=== PATIENT | male | born 1970 ===

== ENCOUNTER 2018-10-15 13:26 | Inpatient (IN) | payer MEDICAID ==
[2018-10-15] MEDS ORDERED: Piperacillin/Tazobact 4.5 GM in Sodium Chloride 0.9% 100 ML IVPB STA (14:39)
[2018-10-15] MEDS ORDERED: Vancomycin 1 g Inj ONE (14:50)
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
[2018-10-15 15:09] LABS: BASO # 0.1 K/uL (0.0-0.2); BASO % 0.7 % (0.0-2.0); EOS % 0.1 % (0.0-4.0); HEMOGLOBIN 12.9 g/dL (12.0-18.0); LYMPH # 0.6 K/uL (1.0-4.3); LYMPH % 4.7 % (20.0-40.0); MEAN CELL VOLUME 87.2 fl (80.0-94.0); MEAN CORPUSCULAR HEMOGLOBIN 27.7 pg (27.0-31.0); MEAN CORPUSCULAR HGB CONC 31.8 g/dL (33.0-37.0); MEAN PLATELET VOLUME 9.3 fl (7.2-11.7); MONO # 0.6 K/uL (0.0-0.8); MONO % 4.8 % (0.0-10.0); NEUT # 10.6 K/uL (1.8-7.0); NEUT % 89.7 % (50.0-75.0); PLATELET COUNT 340 K/uL (130-400); RBC 4.63 Mil/uL (4.40-5.90); WHITE BLOOD COUNT 11.8 K/uL (4.8-10.8)
[2018-10-15 15:16] LABS: ALBUMIN 4.1 g/dL (3.5-5.0); ALT/SGPT 24 U/L (21-72); AST/SGOT 20 U/L (17-59); BLOOD UREA NITROGEN 18 mg/dl (9-20); CALCIUM 9.3 mg/dL (8.4-10.2); GFR NON-AFRICAN AMERICAN > 60
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
[2018-10-15 16:01] LABS: EOSINOPHIL 1 % (0-7); LYMPHOCYTE 4 % (20-50); MONOCYTE 2 % (0-10); NEUTROPHIL 93 % (42-75); PLATELET ESTIMATE NORMAL (NORMAL); TOTAL CELLS COUNTED 100
[2018-10-15] MEDS ORDERED: Iohexol 300 100 ML IJ ONE (17:32)
[2018-10-15] MEDS ORDERED: Sodium Chloride 0.9% 50 ML IV ONE (17:32)
[2018-10-15] MEDS ORDERED: Lidocaine 1% Inj (20ml) ONE (18:46)
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
--- NOTE | 2018-10-15 19:33 | CP.PCM.PN ---
Subjective - Date & Time of Evaluation Date of Evaluation: 10/15/18 Time of Evaluation: 19:27 - Subjective Subjective: PROCEDURE NOTE FOR DR. CANNON PROCEDURE DATE: 10/15/18 PRE-OP DIAGNOSIS: Left medial forearm abscess POST-OP DIAGNOSIS: Same PROCEDURE: Incision and Drainage of abscess Performing Physician: Guy García D.O Consent was obtained. A timeout protocol was performed prior to initiating the procedure. The left medial forearm area was prepared and draped in the usual, sterile manner. The site was anesthetized with 7cc of 1% lidocaine without epinephrine. A linear incision along the local skin lines was made and approx 50cc of the purulent material expressed. The abscess was explored thoroughly with small clamp and 4*4 gauze and sequestered pockets were opened. Bleeding was minimal. Packin inch iodoform packing Dressing was 4*4 gauze and curlex Followup: The patient tolerated the procedure well without complications. Standard post-procedure care is explained. Objective - Vital Signs/Intake and Output Vital Signs (last 24 hours): Temp Pulse Resp BP Pulse Ox 98.1 F 56 L 20 91/57 L 100 10/15/18 18:56 10/15/18 18:56 10/15/18 18:56 10/15/18 18:56 10/15/18 18:56 - Medications Medications: Current Medications Acetaminophen (Tylenol 325mg Tab) 650 mg PO Q6 PRN PRN Reason: Fever >100.4 F Enoxaparin Sodium (Lovenox) 40 mg SC DAILY NOEL; Protocol Vancomycin HCl 1 gm/ Sodium (Chloride) 250 mls @ 166.667 mls/hr IVPB Q12 NOEL; Protocol Piperacillin Sod/Tazobactam (Sod 3.375 gm/ Sodium Chloride) 100 mls @ 100 mls/hr IVPB Q6 NOEL; Protocol Ibuprofen (Motrin Tab) 400 mg PO Q6H PRN PRN Reason: Pain, Mild (1-3) Pantoprazole Sodium (Protonix Ec Tab) 40 mg PO DAILY NOEL - Labs Labs: 10/15/18 14:10 10/15/18 14:10
[2018-10-15] MEDS ORDERED: Morphine 4 MG/ML VIAL IVP ONE (19:58)
[2018-10-15] MEDS: Piperacillin/Tazobact 3.375 GM in Sodium Chloride 0.9% 100 ML IVPB SCH (20:17)
[2018-10-16] MEDS: Piperacillin/Tazobact 3.375 GM in Sodium Chloride 0.9% 100 ML IVPB SCH ×4 (02:29→21:31)
[2018-10-16 07:37] LABS: BASO # 0.1 K/uL (0.0-0.2); BASO % 0.9 % (0.0-2.0); EOS # 0.1 K/uL (0.0-0.7); EOS % 1.6 % (0.0-4.0); HEMOGLOBIN 11.3 g/dL (12.0-18.0); LYMPH # 1.2 K/uL (1.0-4.3); LYMPH % 15.5 % (20.0-40.0); MEAN CORPUSCULAR HEMOGLOBIN 27.9 pg (27.0-31.0); MEAN CORPUSCULAR HGB CONC 32.4 g/dL (33.0-37.0); MONO # 0.7 K/uL (0.0-0.8); MONO % 9.8 % (0.0-10.0); NEUT # 5.4 K/uL (1.8-7.0); NEUT % 72.2 % (50.0-75.0); NRBC % 0.1 % (0.0-0.0); RBC 4.06 Mil/uL (4.40-5.90); RED CELL DISTRIBUTION WIDTH 13.4 % (11.5-14.5); WHITE BLOOD COUNT 7.4 K/uL (4.8-10.8)
--- NOTE | 2018-10-16 08:17 | CP.PCM.PN ---
<Guy García D - Last Filed: 10/16/18 08:15> Subjective - Date & Time of Evaluation Date of Evaluation: 10/16/18 Time of Evaluation: 08:15 - Subjective Subjective: SURGERY NOTE FOR DR. CANNON 48M seen and examined bedside. Patient states pain is much less, denies any fevers overnight, wound site is still draining and dressing was re-enforced last night. Objective - Vital Signs/Intake and Output Vital Signs (last 24 hours): Temp Pulse Resp BP Pulse Ox 98.4 F 55 L 18 105/61 98 10/16/18 00:45 10/16/18 00:45 10/16/18 00:45 10/16/18 00:45 10/16/18 00:45 - Medications Medications: Current Medications Acetaminophen (Tylenol 325mg Tab) 650 mg PO Q6 PRN PRN Reason: Fever >100.4 F Enoxaparin Sodium (Lovenox) 40 mg SC DAILY NOEL; Protocol Hydromorphone HCl (Dilaudid) 1 mg IVP Q4 PRN PRN Reason: Pain, severe (8-10) Vancomycin HCl 1 gm/ Sodium (Chloride) 250 mls @ 166.667 mls/hr IVPB Q12H NOEL; Protocol Last Admin: 10/15/18 21:29 Dose: 166.667 mls/hr Piperacillin Sod/Tazobactam (Sod 3.375 gm/ Sodium Chloride) 100 mls @ 100 mls/hr IVPB Q6H NOEL; Protocol Last Admin: 10/16/18 02:29 Dose: 100 mls/hr Ibuprofen (Motrin Tab) 400 mg PO Q6H PRN PRN Reason: Pain, Mild (1-3) Pantoprazole Sodium (Protonix Ec Tab) 40 mg PO DAILY NOEL - Labs Labs: 10/16/18 06:00 10/15/18 14:10 - Constitutional Appears: Non-toxic, No Acute Distress - Respiratory Exam Respiratory Exam: Clear to Ausculation Bilateral, NORMAL BREATHING PATTERN - Cardiovascular Exam Cardiovascular Exam: REGULAR RHYTHM, +S1, +S2 - GI/Abdominal Exam GI & Abdominal Exam: Soft. absent: Distended, Firm, Guarding, Rigid, Tenderness, Rebound - Extremities Exam Additional comments: left arm abscess site of I&D draining purulent serosanguinous fluid, non- malodorous, erythema slightly improved, edema in left arm decreased. - Neurological Exam Neurological Exam: Alert, Awake - Skin Skin Exam: Dry, Intact, Normal Color, Warm Assessment and Plan - Assessment and Plan (Free Text) Assessment: 48M left forearm abscess. s/p Bedside I&D POD#1 Plan: - continue antibiotics - f/u wound culture - Daily dressing changes Discussed with Dr. Flo García, PGY3 <Jevon Cannon - Last Filed: 10/16/18 12:31> Objective - Vital Signs/Intake and Output Vital Signs (last 24 hours): Temp Pulse Resp BP Pulse Ox 97.6 F 54 L 20 110/66 100 10/16/18 08:34 10/16/18 08:34 10/16/18 08:34 10/16/18 08:34 10/16/18 08:34 - Medications Medications: Current Medications Acetaminophen (Tylenol 325mg Tab) 650 mg PO Q6 PRN PRN Reason: Fever >100.4 F Enoxaparin Sodium (Lovenox) 40 mg SC DAILY NOEL; Protocol Last Admin: 10/16/18 10:51 Dose: 40 mg Hydromorphone HCl (Dilaudid) 1 mg IVP Q4 PRN PRN Reason: Pain, severe (8-10) Vancomycin HCl 1 gm/ Sodium (Chloride) 250 mls @ 166.667 mls/hr IVPB Q12H NOEL; Protocol Last Admin: 10/16/18 10:51 Dose: 166.667 mls/hr Piperacillin Sod/Tazobactam (Sod 3.375 gm/ Sodium Chloride) 100 mls @ 100 mls/hr IVPB Q6H NOEL; Protocol Last Admin: 10/16/18 10:52 Dose: 100 mls/hr Ibuprofen (Motrin Tab) 400 mg PO Q6H PRN PRN Reason: Pain, Mild (1-3) Pantoprazole Sodium (Protonix Ec Tab) 40 mg PO DAILY NOEL Last Admin: 10/16/18 10:51 Dose: 40 mg - Labs Labs: 10/16/18 06:00 10/16/18 06:00 Assessment and Plan - Assessment and Plan (Free Text) Plan: pt cont abx
[2018-10-16 08:20] LABS: BLOOD UREA NITROGEN 15 mg/dl (9-20); CALCIUM 8.6 mg/dL (8.4-10.2); GFR NON-AFRICAN AMERICAN > 60
--- NOTE | 2018-10-16 09:06 | CT ---
Date of service: 10/15/2018 PROCEDURE: HISTORY: r/o necrotizing fasciitis COMPARISON: TECHNIQUE: FINDINGS: No acute fracture or dislocation. Within the deep palmar soft tissues of the left forearm is a peripherally enhancing fluid collection consistent with an abscess measuring roughly 3.7 x 2.9 x 7.5 centimeters. IMPRESSION: Findings compatible with an abscess in the deep palm are soft tissues. Diffuse circumferential soft tissue swelling throughout the forearm compatible with severe cellulitis.
--- NOTE | 2018-10-16 10:09 | CP.PCM.PN ---
<Sylwia Betancourt - Last Filed: 10/16/18 10:19> Subjective - Date & Time of Evaluation Date of Evaluation: 10/16/18 Time of Evaluation: 09:05 - Subjective Subjective: Patient seen, and examined at bedside this morning. Patient states pain if left forearm is improving, now 03/17. S/P I & D POD #1. Afebrile. No events overnight. Objective - Vital Signs/Intake and Output Vital Signs (last 24 hours): Temp Pulse Resp BP Pulse Ox 97.6 F 54 L 20 110/66 100 10/16/18 08:34 10/16/18 08:34 10/16/18 08:34 10/16/18 08:34 10/16/18 08:34 - Medications Medications: Current Medications Acetaminophen (Tylenol 325mg Tab) 650 mg PO Q6 PRN PRN Reason: Fever >100.4 F Enoxaparin Sodium (Lovenox) 40 mg SC DAILY NOEL; Protocol Hydromorphone HCl (Dilaudid) 1 mg IVP Q4 PRN PRN Reason: Pain, severe (8-10) Vancomycin HCl 1 gm/ Sodium (Chloride) 250 mls @ 166.667 mls/hr IVPB Q12H NOEL; Protocol Last Admin: 10/15/18 21:29 Dose: 166.667 mls/hr Piperacillin Sod/Tazobactam (Sod 3.375 gm/ Sodium Chloride) 100 mls @ 100 mls/hr IVPB Q6H NOEL; Protocol Last Admin: 10/16/18 02:29 Dose: 100 mls/hr Ibuprofen (Motrin Tab) 400 mg PO Q6H PRN PRN Reason: Pain, Mild (1-3) Pantoprazole Sodium (Protonix Ec Tab) 40 mg PO DAILY NOEL - Labs Labs: 10/16/18 06:00 10/16/18 06:00 - Constitutional Appears: Non-toxic, No Acute Distress - Head Exam Head Exam: NORMAL INSPECTION - Eye Exam Eye Exam: Normal appearance - ENT Exam ENT Exam: Mucous Membranes Moist - Respiratory Exam Respiratory Exam: Clear to Ausculation Bilateral, NORMAL BREATHING PATTERN. absent: Decreased Breath Sounds, Rales, Rhonchi, Wheezes, Respiratory Distress, Stridor - Cardiovascular Exam Cardiovascular Exam: REGULAR RHYTHM, +S1, +S2 - GI/Abdominal Exam GI & Abdominal Exam: Soft, Normal Bowel Sounds. absent: Guarding, Rigid, Tenderness - Extremities Exam Extremities Exam: Normal Inspection. absent: Calf Tenderness, Pedal Edema - Back Exam Back Exam: NORMAL INSPECTION. absent: CVA tenderness (L), CVA tenderness (R) - Neurological Exam Neurological Exam: Alert, Awake, Oriented x3 Assessment and Plan - Assessment and Plan (Free Text) Assessment: 48 yo M with no significant pmhx admitted for possible L forearm abscess with overlying cellulitis, s/p I & D by Surgical team, on POD #1. Leukocytosis on admission. CT scan of upper extremity done on admission reported as findings compatible with an abscess, and severe cellulitis. Wound care per surgical team. Patient is on Vanco/Zosyn. Plan: L forearm abscess, with underlying cellulitis s/p I & D by Surgical team, on POD #1. -afebrile -leukocytosis on admission, resolved in today AM labs -Abx: Vanc/Zosyn -Pain management: Motrin and Tylenol -c/w wound care per surgical team, packing changed this morning by surgery. Per surgery will need daily dressing changes -pending blood culture x2 -vanc trough for 12/10 AM prior to AM dose -Surgery: Dr. Rossi on board -CT: upper extremity: reported as findings compatible with an abscess, and severe cellulitis. Diet: regular diet DVT prophylaxis: -Lovenox 40 mg SC <IglesiasAguila maldonado D - Last Filed: 10/16/18 10:53> Objective - Vital Signs/Intake and Output Vital Signs (last 24 hours): Temp Pulse Resp BP Pulse Ox 97.6 F 54 L 20 110/66 100 10/16/18 08:34 10/16/18 08:34 10/16/18 08:34 10/16/18 08:34 10/16/18 08:34 - Medications Medications: Current Medications Acetaminophen (Tylenol 325mg Tab) 650 mg PO Q6 PRN PRN Reason: Fever >100.4 F Enoxaparin Sodium (Lovenox) 40 mg SC DAILY NOEL; Protocol Hydromorphone HCl (Dilaudid) 1 mg IVP Q4 PRN PRN Reason: Pain, severe (8-10) Vancomycin HCl 1 gm/ Sodium (Chloride) 250 mls @ 166.667 mls/hr IVPB Q12H NOEL; Protocol Last Admin: 10/15/18 21:29 Dose: 166.667 mls/hr Piperacillin Sod/Tazobactam (Sod 3.375 gm/ Sodium Chloride) 100 mls @ 100 mls/hr IVPB Q6H NOEL; Protocol Last Admin: 10/16/18 02:29 Dose: 100 mls/hr Ibuprofen (Motrin Tab) 400 mg PO Q6H PRN PRN Reason: Pain, Mild (1-3) Pantoprazole Sodium (Protonix Ec Tab) 40 mg PO DAILY NOEL - Labs Labs: 10/16/18 06:00 10/16/18 06:00 Attending/Attestation - Attestation I have personally seen and examined this patient.: Yes I have fully participated in the care of the patient.: Yes I have reviewed all pertinent clinical information, including history, physical exam and plan: Yes Notes (Text): 10/16/18 10:49 Patient seen and examined with resident. Case discussed and agreed with assessment. Patient feeling better after I&D and initiation of IV antibiotics.
[2018-10-16] MEDS: Enoxaparin 40 mg Syringe SC SCH (10:51)
[2018-10-16] MEDS: Pantoprazole 40 mg EC Tab PO SCH (10:51)
[2018-10-17] MEDS: Piperacillin/Tazobact 3.375 GM in Sodium Chloride 0.9% 100 ML IVPB SCH ×4 (03:06→20:56)
[2018-10-17 06:34] LABS: BASO # 0.1 K/uL (0.0-0.2); BASO % 2.4 % (0.0-2.0); EOS # 0.1 K/uL (0.0-0.7); EOS % 3.2 % (0.0-4.0); HEMOGLOBIN 11.9 g/dL (12.0-18.0); LYMPH # 1.3 K/uL (1.0-4.3); LYMPH % 28.1 % (20.0-40.0); MEAN CELL VOLUME 84.7 fl (80.0-94.0); MEAN CORPUSCULAR HEMOGLOBIN 27.6 pg (27.0-31.0); MEAN CORPUSCULAR HGB CONC 32.6 g/dL (33.0-37.0); MONO # 0.5 K/uL (0.0-0.8); NEUT # 2.6 K/uL (1.8-7.0); NEUT % 55.3 % (50.0-75.0); NRBC % 0.1 % (0.0-0.0); RBC 4.33 Mil/uL (4.40-5.90); WHITE BLOOD COUNT 4.7 K/uL (4.8-10.8)
[2018-10-17 06:42] LABS: BLOOD UREA NITROGEN 16 mg/dl (9-20); CALCIUM 8.8 mg/dL (8.4-10.2); GFR NON-AFRICAN AMERICAN > 60
[2018-10-17] MEDS: Pantoprazole 40 mg EC Tab PO SCH (09:34)
[2018-10-17] MEDS: Enoxaparin 40 mg Syringe SC SCH (09:34)
--- NOTE | 2018-10-17 09:48 | CP.PCM.PN ---
<Sylwia Betancourt - Last Filed: 10/17/18 12:26> Subjective - Date & Time of Evaluation Date of Evaluation: 10/17/18 Time of Evaluation: 08:25 - Subjective Subjective: Patient seen, and examined at bedside this morning. Patient states pain if left forearm unchanged from yesterday, now 03/17. S/P I & D POD #2. Afebrile. No events overnight. Surgical team recommended one more day of IV antibiotics. Objective - Vital Signs/Intake and Output Vital Signs (last 24 hours): Temp Pulse Resp BP Pulse Ox 98.2 F 50 L 20 108/66 100 10/17/18 09:01 10/17/18 09:01 10/17/18 09:01 10/17/18 09:01 10/17/18 09:01 - Medications Medications: Current Medications Acetaminophen (Tylenol 325mg Tab) 650 mg PO Q6 PRN PRN Reason: Fever >100.4 F Enoxaparin Sodium (Lovenox) 40 mg SC DAILY [facility]; Protocol Last Admin: 10/17/18 09:34 Dose: 40 mg Hydromorphone HCl (Dilaudid) 1 mg IVP Q4 PRN PRN Reason: Pain, severe (8-10) Vancomycin HCl 1 gm/ Sodium (Chloride) 250 mls @ 166.667 mls/hr IVPB Q12H [facility]; Protocol Last Admin: 10/16/18 22:50 Dose: 166.667 mls/hr Piperacillin Sod/Tazobactam (Sod 3.375 gm/ Sodium Chloride) 100 mls @ 100 mls/hr IVPB Q6H [facility]; Protocol Last Admin: 10/17/18 09:36 Dose: 100 mls/hr Ibuprofen (Motrin Tab) 400 mg PO Q6H PRN PRN Reason: Pain, Mild (1-3) Pantoprazole Sodium (Protonix Ec Tab) 40 mg PO DAILY [facility] Last Admin: 10/17/18 09:34 Dose: 40 mg - Labs Labs: 10/17/18 05:55 10/17/18 05:55 - Skin Additional comments: Constitutional Appears: Non-toxic, No Acute Distress - Head Exam Head Exam: NORMAL INSPECTION - Eye Exam Eye Exam: Normal appearance - ENT Exam ENT Exam: Mucous Membranes Moist - Respiratory Exam Respiratory Exam: Clear to Ausculation Bilateral, NORMAL BREATHING PATTERN. absent: Decreased Breath Sounds, Rales, Rhonchi, Wheezes, Respiratory Distress, Stridor - Cardiovascular Exam Cardiovascular Exam: REGULAR RHYTHM, +S1, +S2 - GI/Abdominal Exam GI & Abdominal Exam: Soft, Normal Bowel Sounds. absent: Guarding, Rigid, Tenderness - Extremities Exam Extremities Exam: Normal Inspection. absent: Calf Tenderness, Pedal Edema - Back Exam Back Exam: NORMAL INSPECTION. absent: CVA tenderness (L), CVA tenderness (R) - Neurological Exam Neurological Exam: Alert, Awake, Oriented x3 Assessment and Plan - Assessment and Plan (Free Text) Assessment: 48 yo M with no significant pmhx admitted for possible L forearm abscess with overlying cellulitis, s/p I & D by Surgical team, on POD #2. Leukocytosis on admission. CT scan of upper extremity done on admission reported as findings compatible with an abscess, and severe cellulitis. Wound care per surgical team. Patient is on Vanco/Zosyn. Plan: L forearm abscess, with underlying cellulitis s/p I & D by Surgical team, on POD #2. -afebrile -leukocytosis on admission, resolved -surgical team recommended one more day of IV antibiotics -Abx: Vanc/Zosyn -Pain management: Motrin and Tylenol -c/w wound care per surgical team, packing changed this morning by surgery. Per surgery will need daily dressing changes. Packing removed by surgery -c/w Warm compresses -blood culture x2 negative for 24 hours -wound culture reporting : Gram positive cocci, heavy grow. Pending final report -vanc trough this am 13.2 -Surgery: Dr. Rossi on board -CT: upper extremity: reported as findings compatible with an abscess, and severe cellulitis. Diet: regular diet DVT prophylaxis: -Lovenox 40 mg SC <Marylou Munoz - Last Filed: 10/17/18 18:11> Objective - Vital Signs/Intake and Output Vital Signs (last 24 hours): Temp Pulse Resp BP Pulse Ox 98 F 49 L 18 106/65 98 10/17/18 17:34 10/17/18 17:34 10/17/18 17:34 10/17/18 17:34 10/17/18 17:34 - Medications Medications: Current Medications Acetaminophen (Tylenol 325mg Tab) 650 mg PO Q6 PRN PRN Reason: Fever >100.4 F Enoxaparin Sodium (Lovenox) 40 mg SC DAILY [facility]; Protocol Last Admin: 10/17/18 09:34 Dose: 40 mg Hydromorphone HCl (Dilaudid) 1 mg IVP Q4 PRN PRN Reason: Pain, severe (8-10) Vancomycin HCl 1 gm/ Sodium (Chloride) 250 mls @ 166.667 mls/hr IVPB Q12H [facility]; Protocol Last Admin: 10/17/18 12:35 Dose: 166.667 mls/hr Piperacillin Sod/Tazobactam (Sod 3.375 gm/ Sodium Chloride) 100 mls @ 100 mls /hr IVPB Q6H [facility]; Protocol Last Admin: 10/17/18 15:55 Dose: 100 mls/hr Ibuprofen (Motrin Tab) 400 mg PO Q6H PRN PRN Reason: Pain, Mild (1-3) Pantoprazole Sodium (Protonix Ec Tab) 40 mg PO DAILY [facility] Last Admin: 10/17/18 09:34 Dose: 40 mg - Labs Labs: 10/17/18 05:55 10/17/18 05:55 Attending/Attestation - Attestation I have personally seen and examined this patient.: Yes I have fully participated in the care of the patient.: Yes I have reviewed all pertinent clinical information, including history, physical exam and plan: Yes
--- NOTE | 2018-10-17 10:12 | CP.PCM.PN ---
Subjective - Date & Time of Evaluation Date of Evaluation: 10/17/18 Time of Evaluation: 10:08 - Subjective Subjective: General Surgery Pt seen and examined this AM. He reports having less left arm pain today. Denies chills or night sweats. Dressing changed this AM by surgical residents. Packing removed. Labs and vitals noted. WBC 4.7. PE Gen: Pt laying in bed in NAD Skin: warm and dry. Left forearm with surgical incision measuring ~3cm, (-) active drainage at this time, (+) surrounding induration and erythema. The area has improved as evidenced by previous margins. Cardio: s1s2 RRR Lungs: CTA bilaterally Extr: (+) ROM limited of left elbow, pt can not fully extend. A/P Left forearm abscess Warm compresses Continue antibiotics Encourage ranging his elbow Packing no longer needed for dressing changes Dry gauze dressing. Objective - Vital Signs/Intake and Output Vital Signs (last 24 hours): Temp Pulse Resp BP Pulse Ox 98.2 F 50 L 20 108/66 100 10/17/18 09:01 10/17/18 09:01 10/17/18 09:01 10/17/18 09:01 10/17/18 09:01 - Medications Medications: Current Medications Acetaminophen (Tylenol 325mg Tab) 650 mg PO Q6 PRN PRN Reason: Fever >100.4 F Enoxaparin Sodium (Lovenox) 40 mg SC DAILY [facility]; Protocol Last Admin: 10/17/18 09:34 Dose: 40 mg Hydromorphone HCl (Dilaudid) 1 mg IVP Q4 PRN PRN Reason: Pain, severe (8-10) Vancomycin HCl 1 gm/ Sodium (Chloride) 250 mls @ 166.667 mls/hr IVPB Q12H [facility]; Protocol Last Admin: 10/16/18 22:50 Dose: 166.667 mls/hr Piperacillin Sod/Tazobactam (Sod 3.375 gm/ Sodium Chloride) 100 mls @ 100 mls/hr IVPB Q6H [facility]; Protocol Last Admin: 10/17/18 09:36 Dose: 100 mls/hr Ibuprofen (Motrin Tab) 400 mg PO Q6H PRN PRN Reason: Pain, Mild (1-3) Pantoprazole Sodium (Protonix Ec Tab) 40 mg PO DAILY [facility] Last Admin: 10/17/18 09:34 Dose: 40 mg - Labs Labs: 10/17/18 05:55 10/17/18 05:55
[2018-10-17 17:35] VITALS: RESP 18
[2018-10-18 00:58] VITALS: BP 109/56; PULSE 47; TEMP 98.3
[2018-10-18] MEDS: Piperacillin/Tazobact 3.375 GM in Sodium Chloride 0.9% 100 ML IVPB SCH ×2 (04:18→09:29)
[2018-10-18 06:39] LABS: BASO # 0.1 K/uL (0.0-0.2); BASO % 2.1 % (0.0-2.0); EOS # 0.1 K/uL (0.0-0.7); EOS % 3.1 % (0.0-4.0); HEMOGLOBIN 12.3 g/dL (12.0-18.0); LYMPH # 1.1 K/uL (1.0-4.3); LYMPH % 30.3 % (20.0-40.0); MEAN CELL VOLUME 83.8 fl (80.0-94.0); MEAN CORPUSCULAR HEMOGLOBIN 27.1 pg (27.0-31.0); MEAN CORPUSCULAR HGB CONC 32.3 g/dL (33.0-37.0); MONO # 0.3 K/uL (0.0-0.8); MONO % 8.1 % (0.0-10.0); NEUT # 2.1 K/uL (1.8-7.0); NEUT % 56.4 % (50.0-75.0); NRBC % 0.1 % (0.0-0.0); RBC 4.55 Mil/uL (4.40-5.90); RED CELL DISTRIBUTION WIDTH 13.6 % (11.5-14.5); WHITE BLOOD COUNT 3.8 K/uL (4.8-10.8)
[2018-10-18 06:41] LABS: BLOOD UREA NITROGEN 15 mg/dl (9-20); GFR NON-AFRICAN AMERICAN > 60
--- NOTE | 2018-10-18 07:52 | CP.PCM.PN ---
Subjective - Date & Time of Evaluation Date of Evaluation: 10/18/18 Time of Evaluation: 08:15 - Subjective Subjective: Patient seen, and examined at bedside this morning. Patient states pain if left forearm unchanged from yesterday, now 03/17. S/P I & D POD #3. Afebrile. No events overnight. On IV Vanco/Zosyn. Growing Gram positive cocci in wound culture, pending final micro report. Objective - Vital Signs/Intake and Output Vital Signs (last 24 hours): Temp Pulse Resp BP Pulse Ox 98.3 F 47 L 18 109/56 L 95 10/18/18 00:58 10/18/18 00:58 10/18/18 00:58 10/18/18 00:58 10/18/18 00:58 - Medications Medications: Current Medications Acetaminophen (Tylenol 325mg Tab) 650 mg PO Q6 PRN PRN Reason: Fever >100.4 F Enoxaparin Sodium (Lovenox) 40 mg SC DAILY [facility]; Protocol Last Admin: 10/17/18 09:34 Dose: 40 mg Vancomycin HCl 1 gm/ Sodium (Chloride) 250 mls @ 166.667 mls/hr IVPB Q12H [facility]; Protocol Last Admin: 10/17/18 22:23 Dose: 166.667 mls/hr Piperacillin Sod/Tazobactam (Sod 3.375 gm/ Sodium Chloride) 100 mls @ 100 mls/hr IVPB Q6H [facility]; Protocol Last Admin: 10/18/18 04:18 Dose: 100 mls/hr Ibuprofen (Motrin Tab) 400 mg PO Q6H PRN PRN Reason: Pain, Mild (1-3) Pantoprazole Sodium (Protonix Ec Tab) 40 mg PO DAILY [facility] Last Admin: 10/17/18 09:34 Dose: 40 mg - Labs Labs: 10/18/18 05:50 10/18/18 05:50 - Skin Additional comments: Constitutional Appears: Non-toxic, No Acute Distress - Head Exam Head Exam: NORMAL INSPECTION - Eye Exam Eye Exam: Normal appearance - ENT Exam ENT Exam: Mucous Membranes Moist - Respiratory Exam Respiratory Exam: Clear to Ausculation Bilateral, NORMAL BREATHING PATTERN. absent: Decreased Breath Sounds, Rales, Rhonchi, Wheezes, Respiratory Distress, Stridor - Cardiovascular Exam Cardiovascular Exam: REGULAR RHYTHM, +S1, +S2 - GI/Abdominal Exam GI & Abdominal Exam: Soft, Normal Bowel Sounds. absent: Guarding, Rigid, Tenderness - Extremities Exam Extremities Exam: Normal Inspection. absent: Calf Tenderness, Pedal Edema - Back Exam Back Exam: NORMAL INSPECTION. absent: CVA tenderness (L), CVA tenderness (R) - Neurological Exam Neurological Exam: Alert, Awake, Oriented x3 Assessment and Plan - Assessment and Plan (Free Text) Assessment: 48 yo M with no significant pmhx admitted for possible L forearm abscess with overlying cellulitis, s/p I & D by Surgical team, on POD #3. Leukocytosis on admission. CT scan of upper extremity done on admission reported as findings compatible with an abscess, and severe cellulitis. Wound care per surgical team. Patient is on Vanco/Zosyn. Plan: L forearm abscess, with underlying cellulitis s/p I & D by Surgical team, on POD #3. -afebrile -leukocytosis on admission, resolved -surgical team recommended one more day of IV antibiotics -Abx: Vanc/Zosyn, Day #4 -Pain management: Motrin and Tylenol -c/w wound care per surgical team, packing changed this morning by surgery. Per surgery will need daily dressing changes. Packing removed by surgery -c/w Warm compresses -blood culture x2 negative for 24 hours -wound culture reporting : Gram positive cocci, heavy grow. Pending final report -vanc trough this am 13.2 -Surgery: Dr. Rossi on board -CT: upper extremity: reported as findings compatible with an abscess, and severe cellulitis. Diet: regular diet DVT prophylaxis: -Lovenox 40 mg SC
--- NOTE | 2018-10-18 09:15 | CP.PCM.PN ---
Subjective - Date & Time of Evaluation Date of Evaluation: 10/18/18 Time of Evaluation: 09:12 - Subjective Subjective: General Surgery Pt seen and examined this AM. He reports the pain is the same since yesterday and he still isn't able to fully extend his left elbow for days. He has remained afebrile. Labs and vitals noted PE Gen: Pt asleep in bed, easily arousable Skin: Warm and dry. Left forearm with surgical incision measuring ~3cm, (+)sca nt serosanguinous drainage at this time, (+) surrounding induration and erythema, which has improved since yesterday. Cardio: s1s2 RRR Lungs: CTA bilaterally Abd: Soft NTND Extr: (+) Left elbow with limited ROM. Pt unable to fully extend, states he can't because of pain. A/P Left forearm abscess Pt needs to continue to do frequent warm compresses Will need PO antibiotics for home (Bactrim DS okay) and a wound check with PMD or Dr. Rossi in 2-3 days. Cleared for d/c from surgical standpoint Encouraged pt to attempt to fully extend his left elbow Packing no longer needed for dressing changes Pt to clean wound with saline, pat dry, and then cover with dry gauze dressing prn. Pt to change dressings at home when visibly soiled. Objective - Vital Signs/Intake and Output Vital Signs (last 24 hours): Temp Pulse Resp BP Pulse Ox 98.3 F 47 L 18 109/56 L 95 10/18/18 00:58 10/18/18 00:58 10/18/18 00:58 10/18/18 00:58 10/18/18 00:58 - Medications Medications: Current Medications Acetaminophen (Tylenol 325mg Tab) 650 mg PO Q6 PRN PRN Reason: Fever >100.4 F Enoxaparin Sodium (Lovenox) 40 mg SC DAILY [facility]; Protocol Last Admin: 10/17/18 09:34 Dose: 40 mg Vancomycin HCl 1 gm/ Sodium (Chloride) 250 mls @ 166.667 mls/hr IVPB Q12H [facility]; Protocol Last Admin: 10/17/18 22:23 Dose: 166.667 mls/hr Piperacillin Sod/Tazobactam (Sod 3.375 gm/ Sodium Chloride) 100 mls @ 100 mls/hr IVPB Q6H [facility]; Protocol Last Admin: 10/18/18 04:18 Dose: 100 mls/hr Ibuprofen (Motrin Tab) 400 mg PO Q6H PRN PRN Reason: Pain, Mild (1-3) Pantoprazole Sodium (Protonix Ec Tab) 40 mg PO DAILY [facility] Last Admin: 10/17/18 09:34 Dose: 40 mg - Labs Labs: 10/18/18 05:50 10/18/18 05:50
[2018-10-18] MEDS: Enoxaparin 40 mg Syringe SC SCH (09:29)
[2018-10-18] MEDS: Pantoprazole 40 mg EC Tab PO SCH (09:29)
--- NOTE | 2018-10-18 11:43 | CP.PCM.DIS ---
Provider - Provider Date of Admission: 10/17/18 11:44 Attending physician: Aguila Iglesias MD Consults: 10/15/18 21:18 Case Management Referral Routine Comment: Physician Instructions: Reason For Exam: discharge planning Reason for Referral: Discharge Planning 10/16/18 12:16 General Surgery Consult Routine Comment: Consulting Provider: Jevon Rossi Consulting Physician: Jevon Rossi Reason for Consult: abscess, cellulitis Time Spent in preparation of Discharge (in minutes): 30 Diagnosis - Discharge Diagnosis (1) Abscess of left forearm Status: Acute Comment: improving. Cleared by surgical team for discharged on PO antibiotic. Follow up with Dr. Rossi on 10/24/18 at 3:30 pm. Follow up with PMD at [facility] on 10/28/18 at 10:40 am Hospital Course - Lab Results Lab Results: Micro Results 10/15/18 19:45 Abscess - Arm-Left Gram Stain - Final 10/15/18 19:45 Abscess - Arm-Left Wound Culture - Final Methicillin Resistant S Aureus 10/15/18 17:00 Blood Blood Culture - Preliminary NO GROWTH AFTER 48 HOURS 10/15/18 14:10 Blood Blood Culture - Preliminary NO GROWTH AFTER 48 HOURS Most Recent Lab Values WBC 3.8 K/uL (4.8-10.8) L 10/18/18 05:50 RBC 4.55 Mil/uL (4.40-5.90) 10/18/18 05:50 Hgb 12.3 g/dL (12.0-18.0) 10/18/18 05:50 Hct 38.1 % (35.0-51.0) 10/18/18 05:50 MCV 83.8 fl (80.0-94.0) 10/18/18 05:50 MCH 27.1 pg (27.0-31.0) 10/18/18 05:50 MCHC 32.3 g/dL (33.0-37.0) L 10/18/18 05:50 RDW 13.6 % (11.5-14.5) 10/18/18 05:50 Plt Count 345 K/uL (130-400) 10/18/18 05:50 MPV 9.0 fl (7.2-11.7) 10/18/18 05:50 Neut % (Auto) 56.4 % (50.0-75.0) 10/18/18 05:50 Lymph % (Auto) 30.3 % (20.0-40.0) 10/18/18 05:50 [place] % (Auto) 8.1 % (0.0-10.0) 10/18/18 05:50 Eos % (Auto) 3.1 % (0.0-4.0) 10/18/18 05:50 Baso % (Auto) 2.1 % (0.0-2.0) H 10/18/18 05:50 Neut # (Auto) 2.1 K/uL (1.8-7.0) 10/18/18 05:50 Lymph # (Auto) 1.1 K/uL (1.0-4.3) 10/18/18 05:50 [place] # (Auto) 0.3 K/uL (0.0-0.8) 10/18/18 05:50 Eos # (Auto) 0.1 K/uL (0.0-0.7) 10/18/18 05:50 Baso # (Auto) 0.1 K/uL (0.0-0.2) 10/18/18 05:50 Neutrophils % (Manual) 93 % (42-75) H 10/15/18 14:10 Lymphocytes % (Manual) 4 % (20-50) L 10/15/18 14:10 Monocytes % (Manual) 2 % (0-10) 10/15/18 14:10 Eosinophils % (Manual) 1 % (0-7) 10/15/18 14:10 Platelet Estimate Normal (NORMAL) 10/15/18 14:10 RBC Morphology Normal (NORMAL) 10/15/18 14:10 Sodium 140 mmol/l (132-148) 10/18/18 05:50 Potassium 4.5 MMOL/L (3.6-5.0) 10/18/18 05:50 Chloride 104 mmol/L (98-107) 10/18/18 05:50 Carbon Dioxide 29 mmol/L (22-30) 10/18/18 05:50 Anion Gap 12 (10-20) 10/18/18 05:50 BUN 15 mg/dl (9-20) 10/18/18 05:50 Creatinine 1.0 mg/dl (0.8-1.5) 10/18/18 05:50 Est GFR ( Amer) > 60 10/18/18 05:50 Est GFR (Non-Af Amer) > 60 10/18/18 05:50 Random Glucose 92 mg/dL (75-110) 10/18/18 05:50 Calcium 9.0 mg/dL (8.4-10.2) 10/18/18 05:50 Total Bilirubin 0.7 mg/dl (0.2-1.3) 10/15/18 14:10 AST 20 U/L (17-59) 10/15/18 14:10 ALT 24 U/L (21-72) 10/15/18 14:10 Alkaline Phosphatase 67 U/L (38-126) 10/15/18 14:10 Total Protein 8.1 G/DL (6.3-8.2) 10/15/18 14:10 Albumin 4.1 g/dL (3.5-5.0) 10/15/18 14:10 Globulin 4.0 gm/dL (2.2-3.9) H 10/15/18 14:10 Albumin/Globulin Ratio 1.0 (1.0-2.1) 10/15/18 14:10 Vancomycin Trough 13.2 ug/mL (5.0-10.0) H 10/17/18 08:30 - Hospital Course Hospital Course: 48 yo M with no significant pmhx admitted for possible L forearm abscess with overlying cellulitis, s/p I & D by Surgical team, on POD #3. Leukocytosis on admission. CT scan of upper extremity done on admission reported as findings compatible with an abscess, and severe cellulitis. Wound care per surgical team. Patient is on Vanco/Zosyn. Blood cultures x 2 negative for 48 hours. Wound culture reported MRSA. Patient seen, and examined at bedside during rounds this morning. Patient feels better. Pain is controlled with pain medications. Has been afebrile on admission. Cleared by surgical team for discharge today on PO antibiotic. Needs follow up with Dr. Rossi in 2-3 days. Appt made by discharge nurse for 10/24 at 3:30 pm. Also patient will f/u with a PCP at [facility] on 10/28/18. Pt needs to continue to do frequent warm compresses. Packing no longer needed for dressing changes. Encouraged pt to attempt to fully extend his left elbow. Pt to clean wound with saline, pat dry, and then cover with dry gauze dressing prn. Pt to change dressings at home when visibly soiled. Stable to be discharged on Clindamycin 600 mg TID x 10 days, probiotics, and Ibuprofen for pain control. ER precautions given if diarrheas, fevers, chills. - Date & Time of H&P Date of H&P: 10/15/18 Time of H&P: 18:40 Discharge Exam - Head Exam Head Exam: NORMAL INSPECTION - Skin Additional comments: Skin Additional comments: Constitutional Appears: Non-toxic, No Acute Distress - Head Exam Head Exam: NORMAL INSPECTION - Eye Exam Eye Exam: Normal appearance - ENT Exam ENT Exam: Mucous Membranes Moist - Respiratory Exam Respiratory Exam: Clear to Ausculation Bilateral, NORMAL BREATHING PATTERN. absent: Decreased Breath Sounds, Rales, Rhonchi, Wheezes, Respiratory Distress, Stridor - Cardiovascular Exam Cardiovascular Exam: REGULAR RHYTHM, +S1, +S2 - GI/Abdominal Exam GI & Abdominal Exam: Soft, Normal Bowel Sounds. absent: Guarding, Rigid, Tende rness - Extremities Exam Extremities Exam: Normal Inspection. absent: Calf Tenderness, Pedal Edema - Back Exam Back Exam: NORMAL INSPECTION. absent: CVA tenderness (L), CVA tenderness (R) - Neurological Exam Neurological Exam: Alert, Awake, Oriented x3 Discharge Plan - Discharge Medications Prescriptions: Clindamycin [Cleocin] 600 mg PO Q8 10 Days #60 cap Ibuprofen [Motrin Tab] 600 mg PO Q8 PRN #20 tab PRN Reason: Pain, Moderate (4-7) Lactobacillus Combination No.8 [Adult Probiotic] 1 each PO DAILY #30 capsule - Follow Up Plan Condition: IMPROVED Disposition: HOME/ ROUTINE Instructions: Skin Abscess, Cellulitis (Skin Infection), Adult (DC) Additional Instructions: appointment at [facility] october 28 at 10:40am appointment with dr rossi on october 24 at 3:30pm, please bring photo ID, insurance information, medication. Referrals: [facility] [Provider Group] Jevon Rossi MD [Staff Provider] -
[2018-10-19 13:35] VITALS: O2SAT 99
== END 2018-10-18 15:25 | disposition home or self-care (01) | DRG 383 ==
LOC: H.ER 13:26 → H.ERHOLD 17:56 → H.MEDSURG1 18:38 → OBSVTOIN 10-17 11:44
PROC: 0H9EXZZ Drainage of Left Lower Arm Skin, External Approach (ICD-10-PCS; principal; 2018-10-15)
DX: L02.414 Cutaneous abscess of left upper limb (principal); B95.62 Methicillin resistant Staphylococcus aureus infection as the cause of diseases classified elsewhere; F17.210 Nicotine dependence, cigarettes, uncomplicated; L03.114 Cellulitis of left upper limb